=== PATIENT | male | born 1955 | race Caucasian/White ===

== ENCOUNTER → 2019-08-30 | Outpatient (CLI) | payer OTHER | END | disposition home or self-care (01) | LOC: RAD 07:38 | PROVIDERS: ATTEND Family Medicine | DX: M48.07 Spinal stenosis, lumbosacral region (principal); M47.27 Other spondylosis with radiculopathy, lumbosacral region; M43.17 Spondylolisthesis, lumbosacral region; M25.552 Pain in left hip; M21.372 Foot drop, left foot; I34.0 Nonrheumatic mitral (valve) insufficiency | CPT/HCPCS: 72148 ==

== ENCOUNTER 2019-09-19 17:05 | Emergency (ER) | payer OTHER ==
[~2019-09-19] VITALS: Ht 177.8 cm; Wt 64.7 kg
[2019-09-19] MEDS ORDERED: ACETAMINOPHEN 500 MG TABLET PO ONE (18:00)
[2019-09-19] MEDS ORDERED: IBUPROFEN 800 MG TABLET PO STA (18:00)
[2019-09-19] MEDS ORDERED: SODIUM CHLORIDE FLUSH 10ML SYR IVF ONE (18:00)
[2019-09-19] MEDS ORDERED: SODIUM CHLORIDE 0.9% 1,000ML IVBOLUS ONE (18:00)
[2019-09-19 18:26] LABS: BASOPHILS # (AUTO) 0.01 x10^3/uL (0-0.1); BASOPHILS % (AUTO) 0 % (0-1); EOSINOPHILS % (AUTO) 0 % (1-7); LYMPHOCYTES # (AUTO) 0.71 x10^3/uL (1-3.4); LYMPHOCYTES % (AUTO) 5 % (22-44); MD NO; MEAN CORPUSCULAR HEMOGLOBIN 31.7 pg (27.5-34.5); MEAN CORPUSCULAR HGB CONC 33.4 g/dL (33.2-36.2); MEAN CORPUSCULAR VOLUME 94.6 fL (81-97); MEAN PLATELET VOLUME 7.2 fL (7.4-10.4); MONOCYTES % (AUTO) 8 % (2-9); NEUTROPHILS # (AUTO) 11.61 x10^3/uL (1.8-6.8); NEUTROPHILS % (AUTO) 86 % (42-75); PLATELET COUNT 197 x10^3/uL (130-400); RED BLOOD COUNT 4.11 x10^6/uL (4.38-5.82); RED CELL DISTRIBUTION WIDTH 13.1 % (9.4-14.8)
[2019-09-19] MEDS ORDERED: ACETAMINOPHEN 500 MG TABLET ONE (18:28)
[2019-09-19] MEDS ORDERED: IBUPROFEN 200 MG TABLET ONE (18:28)
[2019-09-19 18:38] LABS: ALANINE AMINOTRANSFERASE 19 U/L (12-78); ALBUMIN 3.8 g/dL (3.4-5.0); ANION GAP 7 mmol/L (5-15); CALCIUM 8.8 mg/dL (8.5-10.1); CHLORIDE 100 mmol/L (98-107); CREATININE 1.06 mg/dL (0.7-1.3)
--- NOTE | 2019-09-19 18:41 | NUR ---
PATIENT ARRIVES TO HOSPITAL WITH A RECENT FEVER THAT BEGAN TODAY. HE HAS A RECENT HISTORY OF AN CARDIAC ARREST JUL 24 IN WHICH HE WAS HOSPITALIZED AND GOT A DEFIBRILLATOR AT AT [facility]. VINCENT MARTINEZ. PATIENT WAS FOUND TO HAVE MITRAL VALVE PROLAPSE WITH SEVERE REGURGITATION AND IS SCHEDULED FOR VALVE REPAIR AT [facility] WITH BRIAN MARTINEZ AT [facility] GIVEN CURRENT COVID CRISIS. ON [place]TI[place], RAILS UP. CULTURES IN LAB
[2019-09-19 18:43] LABS: ALKALINE PHOSPHATASE 67 U/L (45-117); TOTAL PROTEIN 7.8 g/dL (6.4-8.2); TROPONIN I < 0.015 ng/mL (0.000-0.045)
[2019-09-19 18:49] LABS: RAPID INFLUENZA A Negative (Negative); RAPID INFLUENZA B Negative (Negative)
[2019-09-19 20:08] LABS: MICROSCOPIC AUTO
[2019-09-19 20:33] VITALS: BP 115/62
[2019-09-20] MEDS ORDERED: GABA300C PO (12:50)
[2019-09-20] MEDS ORDERED: LISI5TAB7 PO (12:50)
[2019-09-20] MEDS ORDERED: ASPI-515 PO (12:50)
== END 2019-09-19 22:05 | disposition home or self-care (01) ==
LOC: ED 17:52
DX: R50.9 Fever, unspecified (principal); Z20.828 Contact with and (suspected) exposure to other viral communicable diseases; R05 Cough; R94.31 Abnormal electrocardiogram [ECG] [EKG]; R41.0 Disorientation, unspecified; I34.1 Nonrheumatic mitral (valve) prolapse; G89.29 Other chronic pain
CPT/HCPCS: 36415; 71045; 80053; 81001; 83605; 84145; 84484; 85025; 87040; 87077; 87147; 87186; 87400; 93005; 96360; 99285; J7030

== ENCOUNTER 2019-09-20 11:44 | Inpatient (IN) | payer OTHER ==
[~2019-09-20] VITALS: Ht 177.8 cm; Wt 64.9 kg
[2019-09-20] MEDS ORDERED: LISI5TAB7 PO (12:50)
[2019-09-20] MEDS ORDERED: ASPI-515 PO (12:50)
[2019-09-20] MEDS ORDERED: GABA300C PO ×2 (12:50)
[2019-09-20 12:58] LABS: MEAN CORPUSCULAR HEMOGLOBIN 31.7 pg (27.5-34.5); MEAN CORPUSCULAR VOLUME 96.1 fL (81-97); MEAN PLATELET VOLUME 7.2 fL (7.4-10.4); PLATELET COUNT 164 x10^3/uL (130-400); RED BLOOD COUNT 3.79 x10^6/uL (4.38-5.82)
[2019-09-20] MEDS ORDERED: SODIUM CHLORIDE FLUSH 10ML SYR IVF ONE (13:00)
[2019-09-20] MEDS ORDERED: VANCOMYCIN 1,400 MG in SODIUM CHLORIDE 0.9% 250 ML IV ONE (13:00)
[2019-09-20] MEDS ORDERED: VANCOMYCIN PER PHARMACY MC PRN ×2 (13:00→17:00)
[2019-09-20] MEDS ORDERED: PIPERACILLIN/TAZO/PMX 3.375GM 50 ML IV ONE (13:00)
--- NOTE | 2019-09-20 13:00 | NUR ---
pt presents to ED upon call notifying that he has positive blood cx. pt states he is symptom free. pt a&o, resps even and unlabored, speaking in full sentences. nadn at this time. pt attached to all monitors, PIV placed, blood cx drawn x 2, vanco to infuse.
[2019-09-20 13:08] LABS: ALANINE AMINOTRANSFERASE 23 U/L (12-78); ALBUMIN 3.1 g/dL (3.4-5.0); ANION GAP 9 mmol/L (5-15); CHLORIDE 103 mmol/L (98-107); CREATININE 1.08 mg/dL (0.7-1.3)
[2019-09-20 13:10] LABS: ALKALINE PHOSPHATASE 60 U/L (45-117); BILIRUBIN,TOTAL 0.7 mg/dL (0.2-1.0); TOTAL PROTEIN 6.8 g/dL (6.4-8.2)
[2019-09-20 13:12] LABS: BASOPHILS # (AUTO) 0.01 x10^3/uL (0-0.1); BASOPHILS % (AUTO) 0 % (0-1); EOSINOPHILS % (AUTO) 0 % (1-7); LYMPHOCYTES # (AUTO) 0.32 x10^3/uL (1-3.4); LYMPHOCYTES % (AUTO) 4 % (22-44); MD SCAN; MONOCYTES # (AUTO) 0.37 x10^3/uL (0.2-0.8); MONOCYTES % (AUTO) 4 % (2-9); NEUTROPHILS # (AUTO) 8.37 x10^3/uL (1.8-6.8); NEUTROPHILS % (AUTO) 92 % (42-75)
--- NOTE | 2019-09-20 13:57 | NUR ---
pt's is Jennifer Ryder, phone number left [phone] left for contact and if staff need questions answered.
--- NOTE | 2019-09-20 14:02 | NUR ---
phone update given to pt's with pt permission. pt tolerating vanco infusion well, no s/sx adverse rxn. pt and updated with POC. coronavirus results still pending at this time, droplet+ precautions remain in place.
--- NOTE | 2019-09-20 14:47 | NUR ---
report given to ELLIE Wolfe who is to assume care at this time.
--- NOTE | 2019-09-20 14:47 | NUR ---
BEDSIDE REPORT FROM ROCHELLE RN, PT AWAITING BED ASSIGNMENT
[2019-09-20 15:54] LABS: MICROSCOPIC AUTO
[2019-09-20 15:56] LABS: CULTURE INDICATED? NO
[2019-09-20] MEDS ORDERED: PIPERACILLIN/TAZO/PMX 3.375GM 50 ML ONE (16:19)
--- NOTE | 2019-09-20 16:27 | NUR ---
ZOSYN STARTED AFTER VANCOMYCIN DONE. PT RESTING IN [facility], CALL LIGHT WTIHIN REACH.
[2019-09-20] MEDS: PIPERACILLIN/TAZO/PMX 3.375GM 50 ML IV SCH ×2 (17:00→23:21)
[2019-09-20] MEDS ORDERED: MORPHINE SULFATE 4 MG/ML, 1ML IVPush PRN (17:00)
[2019-09-20] MEDS ORDERED: ONDANSETRON 2MG/ML, 2ML IVPush PRN (17:00)
[2019-09-20] MEDS ORDERED: BISACODYL 10 MG SUPP PR PRN (17:00)
[2019-09-20] MEDS ORDERED: POLYETHYLENE GLYCOL 17 GM PACKET PO PRN (17:00)
[2019-09-20] MEDS ORDERED: DOCUSATE 100 MG CAPSULE PO PRN (17:00)
--- NOTE | 2019-09-20 17:21 | NUR ---
REPORT TO GRAY ARGUETA
[2019-09-20] MEDS ORDERED: ACETAMINOPHEN 325 MG TABLET ONE ×2 (18:01→18:22)
[2019-09-20] MEDS: ACETAMINOPHEN 325 MG TABLET PO PRN (18:13)
--- NOTE | 2019-09-20 18:21 | NUR ---
NOTIFIED OF PTS CHANGE IN MENTAL STATUS, INCONTINENCE AND SPIKE OF TEMP TO 107 RECTAL
[2019-09-20] MEDS ORDERED: IBUPROFEN 200 MG TABLET ONE (18:23)
[2019-09-20] MEDS ORDERED: IBUPROFEN 600 MG TABLET ONE (18:23)
[2019-09-20] MEDS ORDERED: LORazepam 2 MG/ML, 1ML ONE (18:35)
--- NOTE | 2019-09-20 18:43 | NUR ---
PT MEDICATED PER AUG, NOTIFIED. UPGRADE PT TO MED TELE, THROUGHPUT RN NOTIFIED
[2019-09-20] MEDS ORDERED: LORazepam 2 MG/ML, 1ML IVPush ONE (19:00)
[2019-09-20] MEDS ORDERED: ACETAMINOPHEN 325 MG TABLET PO PRN (19:00)
[2019-09-20] MEDS ORDERED: IBUPROFEN 600 MG TABLET PO PRN (19:00)
--- NOTE | 2019-09-20 19:16 | NUR ---
REPORT RECEIVED FROM ELLIE CORTES. PLAN OF CARE DISCUSSED. CALLED TO INFANT TEACHER TO REQUEST SITTER. PATIETN TRYING TO GET OUT OF BED, AND UNSTEADY
--- NOTE | 2019-09-20 19:56 | NUR ---
ATTEMPTED TO CALL REPORT X1. RN STATED RN TO ASSUME CARE OF PATIENT WILL CALL BACK
--- NOTE | 2019-09-20 20:10 | NUR ---
VSS, FEVER DOWN TO 100.7 AFTER MEDICATION AND ICE PACKS GIVEN BY PREVIOUS RN
--- NOTE | 2019-09-20 20:13 | NUR ---
REPORT GIVEN TO ELLIE RIDDLE. PLAN OF CARE DISCUSSED
[2019-09-20 21:04] VITALS: BP 97/56
[2019-09-20 21:05] VITALS: BP 97/56
[2019-09-20] MEDS ORDERED: PHARMACOKINETIC MONITORING MC PRN (21:30)
[2019-09-20] MEDS: GABAPENTIN 300 MG CAPSULE PO SCH (21:39)
[2019-09-20] MEDS: ENOXAPARIN 40 MG/0.4 ML SQ SCH (21:39)
[2019-09-21 00:11] VITALS: BP 92/54
[2019-09-21] MEDS: PIPERACILLIN/TAZO/PMX 3.375GM 50 ML IV SCH ×4 (05:12→22:06)
[2019-09-21 05:30] VITALS: BP 114/72
[2019-09-21] MEDS ORDERED: VANCOMYCIN 1,400 MG in SODIUM CHLORIDE 0.9% 250 ML IV SCH (06:00)
[2019-09-21 06:15] LABS: MEAN CORPUSCULAR HEMOGLOBIN 31.9 pg (27.5-34.5); MEAN CORPUSCULAR HGB CONC 33.3 g/dL (33.2-36.2); MEAN CORPUSCULAR VOLUME 95.7 fL (81-97); MEAN PLATELET VOLUME 7.4 fL (7.4-10.4); PLATELET COUNT 129 x10^3/uL (130-400); RED BLOOD COUNT 3.87 x10^6/uL (4.38-5.82)
[2019-09-21 06:16] VITALS: BP 94/57
[2019-09-21 06:19] LABS: ALBUMIN 2.9 g/dL (3.4-5.0); ANION GAP 6 mmol/L (5-15); CALCIUM 8.3 mg/dL (8.5-10.1); CHLORIDE 106 mmol/L (98-107)
[2019-09-21 06:23] LABS: ALANINE AMINOTRANSFERASE 24 U/L (12-78); ALKALINE PHOSPHATASE 59 U/L (45-117); BILIRUBIN,TOTAL 0.5 mg/dL (0.2-1.0); CREATININE 1.04 mg/dL (0.7-1.3); TOTAL PROTEIN 6.6 g/dL (6.4-8.2)
[2019-09-21 06:36] LABS: BASOPHILS # (AUTO) 0.02 x10^3/uL (0-0.1); BASOPHILS % (AUTO) 0 % (0-1); EOSINOPHILS % (AUTO) 0 % (1-7); LYMPHOCYTES % (AUTO) 11 % (22-44); MD SCAN; MONOCYTES # (AUTO) 0.42 x10^3/uL (0.2-0.8); MONOCYTES % (AUTO) 7 % (2-9); NEUTROPHILS # (AUTO) 4.57 x10^3/uL (1.8-6.8); NEUTROPHILS % (AUTO) 82 % (42-75)
[2019-09-21 08:08] VITALS: BP 95/62
[2019-09-21] MEDS: GABAPENTIN 300 MG CAPSULE PO SCH ×2 (08:09→20:24)
[2019-09-21] MEDS: LISINOPRIL 5 MG TABLET PO SCH (08:09)
[2019-09-21] MEDS: ASPIRIN 81 MG TABLET EC PO SCH (09:03)
[2019-09-21] MEDS ORDERED: LIDOCAINE 2%, 20ML ONE (12:51)
[2019-09-21] MEDS ORDERED: VANCOMYCIN 500 MG ONE (12:51)
[2019-09-21] MEDS ORDERED: MIDAZOLAM 1 MG/ML, 5ML ONE (12:51)
[2019-09-21] MEDS ORDERED: FENTANYL PF 100 MCG/2ML ONE (12:51)
[2019-09-21] MEDS: ACETAMINOPHEN 325 MG TABLET PO PRN (14:13)
[2019-09-21 14:21] VITALS: BP 166/85
[2019-09-21] MEDS: VANCOMYCIN 1,300 MG in SODIUM CHLORIDE 0.9% 250 ML IV SCH (17:53)
[2019-09-21 18:30] VITALS: BP 96/61
[2019-09-21] MEDS: ENOXAPARIN 40 MG/0.4 ML SQ SCH (20:25)
[2019-09-21] MEDS: SODIUM CHLORIDE FLUSH 10ML SYR IVF SCH (20:25)
[2019-09-22 01:36] VITALS: BP 155/73
[2019-09-22 04:44] LABS: BASOPHILS # (AUTO) 0.01 x10^3/uL (0-0.1); BASOPHILS % (AUTO) 0 % (0-1); EOSINOPHILS # (AUTO) 0.01 x10^3/uL (0-0.4); EOSINOPHILS % (AUTO) 0 % (1-7); LYMPHOCYTES # (AUTO) 0.67 x10^3/uL (1-3.4); LYMPHOCYTES % (AUTO) 14 % (22-44); MD NO; MEAN CORPUSCULAR HGB CONC 34.1 g/dL (33.2-36.2); MEAN CORPUSCULAR VOLUME 93.9 fL (81-97); MEAN PLATELET VOLUME 8.1 fL (7.4-10.4); MONOCYTES % (AUTO) 11 % (2-9); NEUTROPHILS # (AUTO) 3.48 x10^3/uL (1.8-6.8); NEUTROPHILS % (AUTO) 75 % (42-75); PLATELET COUNT 122 x10^3/uL (130-400); RED BLOOD COUNT 3.56 x10^6/uL (4.38-5.82); RED CELL DISTRIBUTION WIDTH 13.4 % (9.4-14.8)
[2019-09-22 04:54] LABS: ALANINE AMINOTRANSFERASE 22 U/L (12-78); ALBUMIN 2.7 g/dL (3.4-5.0); ANION GAP 7 mmol/L (5-15); CHLORIDE 105 mmol/L (98-107); CREATININE 0.84 mg/dL (0.7-1.3)
[2019-09-22 04:57] LABS: ALKALINE PHOSPHATASE 55 U/L (45-117); BILIRUBIN,TOTAL 0.3 mg/dL (0.2-1.0); TOTAL PROTEIN 6.3 g/dL (6.4-8.2)
[2019-09-22] MEDS: PIPERACILLIN/TAZO/PMX 3.375GM 50 ML IV SCH ×2 (04:58→10:25)
[2019-09-22] MEDS: VANCOMYCIN 1,300 MG in SODIUM CHLORIDE 0.9% 250 ML IV SCH (06:09)
[2019-09-22 07:14] VITALS: BP 130/76
[2019-09-22] MEDS: GABAPENTIN 300 MG CAPSULE PO SCH ×2 (10:23→21:00)
[2019-09-22] MEDS: ASPIRIN 81 MG TABLET EC PO SCH (10:23)
[2019-09-22] MEDS: LISINOPRIL 5 MG TABLET PO SCH (10:24)
[2019-09-22] MEDS: SODIUM CHLORIDE FLUSH 10ML SYR IVF SCH ×2 (10:24→21:00)
[2019-09-22 14:12] VITALS: BP 97/66
[2019-09-22 14:59] LABS: HCT (SEDRATE) 34.5 % (39.2-51.8)
[2019-09-22] MEDS: CEFAZOLIN 2,000 MG in SODIUM CHLORIDE 0.9% 50 ML IV SCH ×2 (15:04→22:43)
[2019-09-22 18:57] VITALS: BP 106/69
[2019-09-22] MEDS: ENOXAPARIN 40 MG/0.4 ML SQ SCH (21:00)
[2019-09-23 01:17] VITALS: BP 119/65
[2019-09-23 05:44] LABS: BASOPHILS # (AUTO) 0.02 x10^3/uL (0-0.1); BASOPHILS % (AUTO) 1 % (0-1); EOSINOPHILS # (AUTO) 0.12 x10^3/uL (0-0.4); EOSINOPHILS % (AUTO) 3 % (1-7); LYMPHOCYTES # (AUTO) 0.93 x10^3/uL (1-3.4); LYMPHOCYTES % (AUTO) 21 % (22-44); MD NO; MEAN CORPUSCULAR HEMOGLOBIN 32.9 pg (27.5-34.5); MEAN CORPUSCULAR HGB CONC 34.9 g/dL (33.2-36.2); MEAN CORPUSCULAR VOLUME 94.5 fL (81-97); MEAN PLATELET VOLUME 7.7 fL (7.4-10.4); MONOCYTES # (AUTO) 0.75 x10^3/uL (0.2-0.8); MONOCYTES % (AUTO) 17 % (2-9); NEUTROPHILS # (AUTO) 2.59 x10^3/uL (1.8-6.8); NEUTROPHILS % (AUTO) 59 % (42-75); PLATELET COUNT 141 x10^3/uL (130-400); RED BLOOD COUNT 3.36 x10^6/uL (4.38-5.82); RED CELL DISTRIBUTION WIDTH 13.3 % (9.4-14.8)
[2019-09-23 05:45] LABS: ANION GAP 5 mmol/L (5-15); CALCIUM 8.3 mg/dL (8.5-10.1); CHLORIDE 105 mmol/L (98-107); CREATININE 0.83 mg/dL (0.7-1.3)
[2019-09-23 05:46] LABS: VANCOMYCIN,TROUGH 7.4 mcg/mL (5.0-10.0)
[2019-09-23] MEDS: CEFAZOLIN 2,000 MG in SODIUM CHLORIDE 0.9% 50 ML IV SCH ×3 (06:36→21:51)
[2019-09-23 07:27] VITALS: BP 124/67
[2019-09-23] MEDS: GABAPENTIN 300 MG CAPSULE PO SCH ×2 (09:35→21:51)
[2019-09-23] MEDS: ASPIRIN 81 MG TABLET EC PO SCH (09:35)
[2019-09-23] MEDS: LISINOPRIL 5 MG TABLET PO SCH (09:35)
[2019-09-23] MEDS: SODIUM CHLORIDE FLUSH 10ML SYR IVF SCH ×2 (09:36→21:52)
[2019-09-23] MEDS: POTASSIUM CHLORIDE 20 MEQ TAB.ER.PRT PO SCH ×2 (11:44→17:31)
[2019-09-23 14:49] VITALS: BP 98/61
[2019-09-23 20:03] VITALS: BP 115/74
[2019-09-23] MEDS: ENOXAPARIN 40 MG/0.4 ML SQ SCH (21:51)
[2019-09-24 01:19] VITALS: BP 134/76
[2019-09-24 05:25] LABS: BASOPHILS # (AUTO) 0.02 x10^3/uL (0-0.1); BASOPHILS % (AUTO) 1 % (0-1); EOSINOPHILS # (AUTO) 0.25 x10^3/uL (0-0.4); EOSINOPHILS % (AUTO) 5 % (1-7); LYMPHOCYTES # (AUTO) 1.38 x10^3/uL (1-3.4); LYMPHOCYTES % (AUTO) 29 % (22-44); MD NO; MEAN CORPUSCULAR HEMOGLOBIN 31.9 pg (27.5-34.5); MEAN CORPUSCULAR HGB CONC 34.1 g/dL (33.2-36.2); MEAN CORPUSCULAR VOLUME 93.5 fL (81-97); MEAN PLATELET VOLUME 7.8 fL (7.4-10.4); MONOCYTES # (AUTO) 0.76 x10^3/uL (0.2-0.8); MONOCYTES % (AUTO) 16 % (2-9); NEUTROPHILS # (AUTO) 2.35 x10^3/uL (1.8-6.8); NEUTROPHILS % (AUTO) 49 % (42-75); PLATELET COUNT 162 x10^3/uL (130-400); RED BLOOD COUNT 3.22 x10^6/uL (4.38-5.82); RED CELL DISTRIBUTION WIDTH 13.5 % (9.4-14.8)
[2019-09-24 05:36] LABS: ALBUMIN 2.6 g/dL (3.4-5.0); ANION GAP 7 mmol/L (5-15); CALCIUM 8.3 mg/dL (8.5-10.1); CHLORIDE 107 mmol/L (98-107)
[2019-09-24 05:39] LABS: ALANINE AMINOTRANSFERASE 20 U/L (12-78); ALKALINE PHOSPHATASE 50 U/L (45-117); BILIRUBIN,TOTAL 0.7 mg/dL (0.2-1.0); CREATININE 0.81 mg/dL (0.7-1.3); TOTAL PROTEIN 5.9 g/dL (6.4-8.2)
[2019-09-24] MEDS: CEFAZOLIN 2,000 MG in SODIUM CHLORIDE 0.9% 50 ML IV SCH (05:58)
[2019-09-24 07:14] VITALS: BP 121/75
[2019-09-24] MEDS: SODIUM CHLORIDE FLUSH 10ML SYR IVF SCH (08:08)
[2019-09-24] MEDS: LISINOPRIL 5 MG TABLET PO SCH (08:08)
[2019-09-24] MEDS: POTASSIUM CHLORIDE 20 MEQ TAB.ER.PRT PO SCH (08:08)
[2019-09-24] MEDS: ASPIRIN 81 MG TABLET EC PO SCH (08:08)
[2019-09-24] MEDS: GABAPENTIN 300 MG CAPSULE PO SCH (08:08)
[2019-09-24 12:30] VITALS: BP 127/80
[2019-09-24] MEDS ORDERED: CEFA2PLA9 IV (14:08)
== END 2019-09-24 15:43 | disposition home health service (06) | DRG 260 ==
LOC: ED 12:23 → EDIP 14:42 → 4WST 20:47 → 5SO 09-21 14:07
PROVIDERS: ADMIT Internal Medicine; ATTEND Internal Medicine
PROC: 02PA3MZ Removal of Cardiac Lead from Heart, Percutaneous Approach (ICD-10-PCS; principal; 2019-09-21)
PROC: 0JPT0PZ Removal of Cardiac Rhythm Related Device from Trunk Subcutaneous Tissue and Fascia, Open Approach (ICD-10-PCS; 2019-09-21)
PROC: 02HV33Z Insertion of Infusion Device into Superior Vena Cava, Percutaneous Approach (ICD-10-PCS; 2019-09-24)
PROC: B5181ZA Fluoroscopy of Superior Vena Cava using Low Osmolar Contrast, Guidance (ICD-10-PCS; 2019-09-24)
PROC: B5181ZA Fluoroscopy of Superior Vena Cava using Low Osmolar Contrast, Guidance (ICD-10-PCS; 2019-09-24)
DX: T82.7XXA Infection and inflammatory reaction due to other cardiac and vascular devices, implants and grafts, initial encounter (principal); A41.01 Sepsis due to Methicillin susceptible Staphylococcus aureus; E87.1 Hypo-osmolality and hyponatremia; D63.8 Anemia in other chronic diseases classified elsewhere; D69.6 Thrombocytopenia, unspecified; E83.51 Hypocalcemia; E87.6 Hypokalemia; I08.1 Rheumatic disorders of both mitral and tricuspid valves; Y83.1 Surgical operation with implant of artificial internal device as the cause of abnormal reaction of the patient, or of later complication, without mention of misadventure at the time of the procedure; Z95.810 Presence of automatic (implantable) cardiac defibrillator; Z87.891 Personal history of nicotine dependence; Z20.828 Contact with and (suspected) exposure to other viral communicable diseases
CPT/HCPCS: 33241; 33244; 36415; 99285; J3490; 36573; 71045; 80048; 80053; 80202; 81001; 83605; 83615; 83735; 84100; 85025; 85651; 86140; 87040; 87070; 87075; 87077; 87147; 87186; 87205; 93306; 97162; 99156; G0378; J0690; J1650; J2250; J2543; J3010; J3370; C1751; J2060; J2270; J7050

== ENCOUNTER 2019-11-05 10:06 | Day surgery (SDC) | payer OTHER ==
[~2019-11-05] VITALS: Ht 177.8 cm; Wt 63.6 kg
[~2019-11-05 10:06] MED LIST: ASPI-515 PO; CEFA2PLA9 IV; GABA300C PO; LISI5TAB7 PO
[2019-11-05] MEDS ORDERED: SODIUM CHLORIDE 0.9% 1,000 ML IV SCH (10:30)
[2019-11-05 10:44] VITALS: BP 116/71
[2019-11-05] MEDS ORDERED: AZEL6DRO2 EACHEYE (11:01)
[2019-11-05] MEDS ORDERED: FLUT9.9S INH (11:01)
[2019-11-05] MEDS ORDERED: CETI10CA PO (11:01)
[2019-11-05] MEDS ORDERED: FENTANYL PF 100 MCG/2ML ONE (11:59)
[2019-11-05] MEDS ORDERED: MIDAZOLAM 1 MG/ML, 5ML ONE (11:59)
[2019-11-05] MEDS ORDERED: LIDOCAINE-MPF 1%, 5ML ONE (12:02)
[2019-11-05] MEDS ORDERED: PROPOFOL 10 MG/ML, 20ML ONE (13:10)
== END 2019-11-05 15:29 | disposition home or self-care (01) ==
LOC: CACL 10:06
PROVIDERS: ATTEND Internal Medicine Cardiovascular Disease
DX: Z01.810 Encounter for preprocedural cardiovascular examination (principal); I46.9 Cardiac arrest, cause unspecified; I08.1 Rheumatic disorders of both mitral and tricuspid valves; I10 Essential (primary) hypertension; I49.01 Ventricular fibrillation; M54.30 Sciatica, unspecified side; M21.372 Foot drop, left foot; Z79.82 Long term (current) use of aspirin; Z79.899 Other long term (current) drug therapy
CPT/HCPCS: 93312; 93321; 93325; 93451; C1894; J2250; J2704; U0001; J3010